=== PATIENT | male | born 1945 | race Hispanic/Latino ===

== ENCOUNTER → 2020-05-03 | Day surgery (SDC) | payer MEDICARE, OTHER ==
[2020-04-30 12:45] LABS: BASOPHILS % 0.6 % (0.0-1.0); EOSINOPHILS # (AUTO) 0.1 (0.0-0.4); EOSINOPHILS % 1.1 % (0.0-6.0); HEMATOCRIT 40.3 % (38.2-49.6); LYMPHOCYTES # (AUTO) 1.5 (1.0-3.2); LYMPHOCYTES % 28.1 % (18.0-39.1); MEAN CORPUSCULAR HEMOGLOBIN 33.2 pg (28-32); MEAN CORPUSCULAR HGB CONC 34.7 g/dL (31-35); MEAN CORPUSCULAR VOLUME 95.5 fL (81-99); MONOCYTES # (AUTO) 0.5 (0.2-0.8); MONOCYTES % 9.9 % (4.4-11.3); NEUTROPHILS # (AUTO) 3.3 (2.1-6.9); NEUTROPHILS % 60.1 % (38.7-80.0); PLATELET COUNT 182 x10e3/uL (140-360); RED BLOOD COUNT 4.22 x10e6/uL (4.3-5.7); RED CELL DISTRIBUTION WIDTH 12.6 % (11.7-14.4)
[2020-04-30 13:03] LABS: ANION GAP 10.9 mmol/L (8-16); BLOOD UREA NITROGEN 17 mg/dL (7-26); BUN/CREATININE RATIO 19 (6-25); CARBON DIOXIDE 28 mmol/L (22-29); CHLORIDE 104 mmol/L (98-107); CREATININE, SERUM 0.91 mg/dL (0.72-1.25); EST GLOMERULAR FILTRATION RATE > 60 ML/MIN (60-); GLUCOSE 114 mg/dL (74-118); POTASSIUM 3.9 mmol/L (3.5-5.1); SODIUM 139 mmol/L (136-145)
--- NOTE | 2020-04-30 13:38 | Diagnostic Imaging Report ---
EXAMINATION: CHEST 2 VIEWS INDICATION: Preop for hernia repair ^PRE OP COMPARISON: None FINDINGS: TUBES and LINES: None. LUNGS: Lungs are well inflated. Lungs are clear. There is no evidence of pneumonia or pulmonary edema. PLEURA: No pleural effusion or pneumothorax. HEART AND MEDIASTINUM: The cardiomediastinal silhouette is unremarkable. BONES AND SOFT TISSUES: No acute osseous lesion. Soft tissues are unremarkable. UPPER ABDOMEN: No free air under the diaphragm. IMPRESSION: No acute thoracic abnormality. Signed by: Dr. Jose Keys M.D. on 04/30/2020 1:35 PM
[~2020-05-03] MED LIST: BUPIVACAINE 0.25% 30ML SDV INJ ONE; CARBIDOPA-LEVO1 EAC5 PO; DEXAMETHASONE SOD PHOS INJ 4 MG/ML VIAL ONE; FENTANYL CITRATE/PF 100MCG/2 ML INJ ONE; FLOMAX0.4 MG PO; GLYCOPYRROLATE INJ 0.2 MG/ML VIAL ONE; HYDROCODONE/APAP 7.5MG-325MG 1 EA TAB ONE; LIDOCAINE 1% W/EPINEPHRINE 20 ML VIAL ONE; LIDOCAINE HCL 2% JELLY 5 ML TUBE ONE; LIDOCAINE HCL 2% LOCAL INJ 5 ML SDV VIAL INJ ONE; MIDAZOLAM HCL 2 MG/2 ML VIAL ONE; ONDANSETRON HCL INJ 2MG/ML 2ML 2 MG/ML VIAL ONE; PROPOFOL IV EMULSION 10 MG/ML 20 ML VIAL ONE; ROCURONIUM BROMIDE 10 MG/ML 5ML VIAL IV ONE; SEVOFLURANE INHAL SOLN 250 ML PEN BTL ONE; SINEMET 25-2501 EACH PO; TRIHEXYPHENIDYL5 MG PO
--- NOTE | 2020-05-03 10:20 | Operative Report ---
DATE OF PROCEDURE: SURGEON: Richie Wood MD PREOPERATIVE DIAGNOSIS: Right inguinal hernia. POSTOPERATIVE DIAGNOSIS: Right inguinal hernia. PROCEDURE PERFORMED: Repair of right inguinal hernia with Ultrapro Hernia System, oval type. FLOODPLAIN MANAGER: REY Rosa ESTIMATED BLOOD LOSS: Minimal. DRAINS: None. COMPLICATIONS: None. INDICATION AND FINDINGS: This patient is a pleasant 74-year-old male with a history of Parkinson's, admitted for repair of right inguinal hernia. He said that he noticed a bulge in the right groin several weeks ago, painful at that time, had no pain now. He denied any urological problems. INTRAOPERATIVE FINDINGS: The patient had a large indirect hernia sac that contained bowel. The sac extended to the external inguinal ring. DESCRIPTION OF PROCEDURE: With the patient lying on the operative table in the supine position after administration of general anesthesia, he was prepped and draped for repair of a right inguinal hernia. Preemptive anesthesia was given with 0.25% Marcaine with and without epinephrine as local block at the incision and throughout the case. A total of 30 mL were used. The skin incision was made across the groin and carried down through the skin and subcutaneous tissue, Donna fascia until the external oblique aponeurosis was seen and then this was opened. The external inguinal ring was transected. The inguinal canal floor was exposed. The cord was mobilized at the level of the pubic tubercle and retracted away with drain. The cord was then explored after we incised the cremaster muscle. An indirect hernia sac that was large and thick contained bowel was dissected free from the surrounding tissues and excised. The sac was then closed with a running 2-0 Vicryl stitch and there was run on itself and then the preperitoneal space was developed using blunt dissection. The inferior epigastric vessels were sacrificed to allow free entry into the preperitoneal space and tied off with 2-0 silk. Then, after we created a pocket using blunt dissection, the mesh was deployed with the underlay part of the mesh over the direct space and the overlay part of the mesh over the inguinal canal floor. The mesh was secured to local tissues using a series of 2-0 Ethibond sutures. The slit to accommodate the cord was also closed using the same suture material. The ilioinguinal nerve was sacrificed to prevent neuroma formation after the sponge and instrument counts were pronounced correct, we closed the wound using 2-0 Vicryl for the external oblique aponeurosis, 2-0 plain catgut for the soft tissues, and the skin was using earlene. Sterile dressing was applied. The patient tolerated the procedure well, was taken to recovery room in stable condition. MD SHAQUILLE Castillo/MEGHANN /[id number]
[2020-05-03 11:40] VITALS: BP 179/94
== END | disposition home or self-care (01) ==
LOC: OR 05:46
PROVIDERS: ATTEND Surgery
DX: K40.90 Unilateral inguinal hernia, without obstruction or gangrene, not specified as recurrent (principal); G20 Parkinson's disease; Z01.810 Encounter for preprocedural cardiovascular examination; Z01.812 Encounter for preprocedural laboratory examination; Z01.818 Encounter for other preprocedural examination; Z11.59 Encounter for screening for other viral diseases
CPT/HCPCS: 36415; 49505; 71046; 80048; 85025; 93005; C1781; J1100; J2001 ×2; J2250; J2405; J2704; J3010; U0002